=== PATIENT | male | born 1975 | race Caucasian/White ===

== ENCOUNTER 2020-08-08 14:21 | Emergency (ER) | payer OTHER ==
[~2020-08-08] VITALS: Ht 175.3 cm; Wt 93.4 kg
[2020-08-08] MEDS ORDERED: ERYTHROMYCIN E3.5 G2 OPHTHALMIC (15:07)
[2020-08-08 15:16] VITALS: BP 128/89
== END 2020-08-08 15:16 | disposition home or self-care (01) ==
LOC: M.ERS 14:21
DX: S05.01XA Injury of conjunctiva and corneal abrasion without foreign body, right eye, initial encounter (principal); Z88.0 Allergy status to penicillin; X58.XXXA Exposure to other specified factors, initial encounter; Y93.89 Activity, other specified; Y92.89 Other specified places as the place of occurrence of the external cause; Y99.9 Unspecified external cause status